=== PATIENT | female | born 1950 ===

== ENCOUNTER 2017-10-21 08:47 | Outpatient (CLI) | payer OTHER ==
[~2017-10-21 08:47] MED LIST: NABUMETONE500 MG PO; PERCOCET 5/3251 TAB PO
== END 2017-10-21 08:55 | disposition home or self-care (01) ==
LOC: SONOGRAMA 08:47 → MAMO-SONO 09:15
DX: M71.532 Other bursitis, not elsewhere classified, left wrist (principal); G56.02 Carpal tunnel syndrome, left upper limb

== ENCOUNTER 2018-01-16 11:26 | Outpatient (CLI) | payer OTHER | END 2018-01-16 11:33 | disposition home or self-care (01) | LOC: RAD 501 11:26 | DX: D86.3 Sarcoidosis of skin (principal) ==

== ENCOUNTER 2021-06-26 10:02 | Outpatient (CLI) | payer OTHER | END 2021-06-26 10:17 | disposition home or self-care (01) | LOC: SONOGRAMA 10:02 | PROVIDERS: ATTEND Internal Medicine Endocrinology, Diabetes & Metabolism | DX: E07.89 Other specified disorders of thyroid (principal); E04.8 Other specified nontoxic goiter ==

== ENCOUNTER 2022-04-26 07:30 | Inpatient (IN) | payer OTHER ==
[~2022-04-26] VITALS: Ht 157.5 cm; Wt 44.5 kg
[2022-04-26] MEDS ORDERED: ZETIA10 MG PO (09:32)
[2022-04-26] MEDS ORDERED: HORIZANT600 MG PO (09:33)
[2022-04-26] MEDS ORDERED: SYNTHROID100 MCG PO (09:33)
[2022-04-26] MEDS ORDERED: HORIZANT300 MG PO (09:33)
[2022-04-26] MEDS ORDERED: CRESTOR5 MG PO (09:33)
[2022-04-26] MEDS ORDERED: XARELTO15 MG PO (09:58)
[2022-05-01] MEDS ORDERED: MONTELUKAST SOD10 MG (14:44)
[2022-05-01] MEDS ORDERED: VALSARTAN-HCTZ1 EAC1 (14:44)
[2022-05-01] MEDS ORDERED: DICLOFENAC POTA50 MG (14:44)
[2022-05-01] MEDS ORDERED: NORFLEX100MG (14:44)
[2022-05-01] MEDS ORDERED: PANTOPRAZOLE SO40 MG (14:44)
[2022-05-01] MEDS ORDERED: GABAPENTIN300 M2 (14:44)
[2022-05-01] MEDS ORDERED: DILTIAZEM HCL30 MG (14:45)
[2022-05-03] MEDS ORDERED: CEFADROXIL500 MG PO (14:16)
[2022-05-03] MEDS ORDERED: ACETAMINOPHEN-1 EAC2 PO (14:16)
[2022-05-03] MEDS ORDERED: ELIQUIS2.5 MG PO (14:16)
[2022-05-04] MEDS ORDERED: DUI500 PO (09:19)
[2022-05-04] MEDS ORDERED: ACETAMINOPHEN-1 EAC2 PO (09:19)
[2022-05-04] MEDS ORDERED: ELIQUIS2.5 MG PO (09:19)
[2022-05-05] MEDS ORDERED: ACETAMINOPHEN-1 EAC2 PO (12:10)
[2022-05-05] MEDS ORDERED: XARELTO15 MG PO (12:10)
[2022-05-10] MEDS ORDERED: ACETAMINOPHEN-1 EAC2 PO (14:48)
[2022-05-10] MEDS ORDERED: XARELTO15 M1 PO (14:48)
== END 2022-05-10 18:47 | DRG 470 ==
LOC: O/R 05-01 06:16 → SURG 05-01 07:00
PROVIDERS: ADMIT Orthopaedic Surgery; ATTEND Orthopaedic Surgery
PROC: 0SRD0J9 Replacement of Left Knee Joint with Synthetic Substitute, Cemented, Open Approach (ICD-10-PCS; principal; 2022-05-01 07:00)
PROC: 5A0945A Assistance with Respiratory Ventilation, 24-96 Consecutive Hours, High Flow/Velocity Cannula (ICD-10-PCS; 2022-05-04)
PROC: B54DZZ3 Ultrasonography of Bilateral Lower Extremity Veins, Intravascular (ICD-10-PCS; 2022-05-06)
PROC: CB121ZZ Planar Nuclear Medicine Imaging of Lungs and Bronchi using Technetium 99m (Tc-99m) (ICD-10-PCS; 2022-05-06)
DX: M17.12 Unilateral primary osteoarthritis, left knee (principal); I26.99 Other pulmonary embolism without acute cor pulmonale; D62 Acute posthemorrhagic anemia; R09.02 Hypoxemia; G47.33 Obstructive sleep apnea (adult) (pediatric); I11.9 Hypertensive heart disease without heart failure; I48.91 Unspecified atrial fibrillation; E03.9 Hypothyroidism, unspecified; W18.30XA Fall on same level, unspecified, initial encounter; Y92.231 Patient bathroom in hospital as the place of occurrence of the external cause

== ENCOUNTER 2022-10-10 08:27 | Outpatient (CLI) | payer OTHER ==
[~2022-10-10 08:27] MED LIST changes: +ACETAMINOPHEN-1 EAC2 PO; +CEFADROXIL500 MG PO; +CRESTOR5 MG PO; +DICLOFENAC POTA50 MG; +DILTIAZEM HCL30 MG; +DUI500 PO; +ELIQUIS2.5 MG PO; +GABAPENTIN300 M2; +HORIZANT300 MG PO; +HORIZANT600 MG PO; +MONTELUKAST SOD10 MG; +NORFLEX100MG; +PANTOPRAZOLE SO40 MG; +SYNTHROID100 MCG PO; +VALSARTAN-HCTZ1 EAC1; +XARELTO15 M1 PO; +XARELTO15 MG PO; +ZETIA10 MG PO
== END 2022-10-10 08:34 | disposition home or self-care (01) ==
LOC: SONOGRAMA 08:27
PROVIDERS: ATTEND Anesthesiology
DX: M25.512 Pain in left shoulder (principal); M25.511 Pain in right shoulder; M25.551 Pain in right hip; M54.2 Cervicalgia; M25.552 Pain in left hip